=== PATIENT | male | born 2005 | race Caucasian/White ===

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

== ENCOUNTER 2023-01-04 17:43 | Emergency (ER) | payer MEDICAID ==
[~2023-01-04] VITALS: Ht 175.3 cm; Wt 91.0 kg
[2023-01-04 17:55] VITALS: BP 131/75; PULSE 116; RESP 16; TEMP 97.6; O2SAT 97
[2023-01-04] MEDS ORDERED: LORAZEPAM 2MG/ML CPJ IV PRN (18:15)
[2023-01-04] MEDS ORDERED: SODIUM CHLORIDE 0.9% 1,000 ML IV ONE (18:15)
[2023-01-04] MEDS ORDERED: LEVETIRACETAM 1000MG PREMIX 100 ML IV ONE (18:15)
[2023-01-04] MEDS ORDERED: ONDANSETRON HCL 4MG/2ML INJ IV ONE (19:00)
[2023-01-04 20:29] LABS: BASOPHILS % 0.1 % (0.0-2.0); EOSINOPHILS % 0.1 % (0.0-5.0); HEMATOCRIT. 44.7 % (42.0-52.0); HEMOGLOBIN. 15.4 g/dL (14.0-18.0); LYMPHOCYTES % 9.1 % (20.0-50.0); MEAN CORPUSCULAR HEMOGLOBIN 30.3 pg (28.0-32.0); MEAN CORPUSCULAR HGB CONC 34.5 g/dL (31.0-37.0); MEAN CORPUSCULAR VOLUME 87.9 fL (80.0-94.0); MONOCYTES % 8.9 % (2.0-8.0); NEUTROPHILS % 81.8 % (40.0-76.0); RED BLOOD CELL COUNT 5.09 mill/uL (4.7-6.1); RED CELL DISTRIBUTION WIDTH 14.5 % (11.6-14.6); WHITE BLOOD COUNT 15.5 x1000/uL (4.5-11.0)
[2023-01-04 20:33] LABS: CHLORIDE 110 mEq/L (98-107); INDEX HEMOLYSI 1 (1-3); INDEX ICTERIC 1 (1-4); INDEX LIPEMIC 1 (1-3); POTASSIUM 3.7 mEq/L (3.5-5.1); SODIUM 140 mEq/L (136-145)
[2023-01-04 20:41] LABS: ALANINE AMINOTRANSFERASE 98 IU/L (13-61); ALBUMIN 3.7 g/dL (3.4-5.0); ASPARTATE AMINOTRANSFERASE 81 IU/L (15-37); BILIRUBIN TOTAL 0.4 mg/dL (0.1-1.0); CALCIUM 8.1 mg/dL (8.5-10.1); CARBON DIOXIDE 20 mEq/L (21-32); CREATININE 0.8 mg/dL (0.6-1.3); ETHANOL BLOOD < 10 mg/dL (-10); GLUCOSE 117 mg/dL (70-105); PROTEIN TOTAL 7.5 g/dL (6.0-8.3); UREA NITROGEN BLOOD 6 mg/dL (7-21)
[2023-01-04 20:43] LABS: CARBAMAZEPINE < 0.5 ug/mL (4-12); PHENYTOIN < 0.4 ug/mL (10-20)
[2023-01-04 22:41] LABS: DIFFERENTIAL COMMENT 1
[2023-01-04 23:58] LABS: MEAN PLATELET VOLUME 9.8 fl (7.4-10.4); PLATELET 165 x1000/uL (130-400)
== END 2023-01-05 02:33 | disposition left against medical advice (07) ==
LOC: ER 17:43 → EDBEDREQTM 22:37 → EDBEDREQ 22:37 → ER 01-05 02:33 → CANBEDREQ 01-05 02:44
DX: R56.9 Unspecified convulsions (principal); R41.82 Altered mental status, unspecified
CPT/HCPCS: 80053; 80320; 80156; 80185; 82962; 80165; 85025; 36415; 70450; 93005; 96365; 96375; 99285; J1953; J2405; J7030; Z7610 ×3; G0480

== ENCOUNTER 2023-10-27 09:00 | Emergency (ER) | payer MEDICAID ==
[~2023-10-27] VITALS: Ht 177.8 cm; Wt 91.0 kg
[~2023-10-27 09:00] MED LIST: LEVE1000 PO
[2023-10-27 09:01] VITALS: O2SAT 95
[2023-10-27] MEDS: LEVETIRACETAM 1000MG PREMIX 100 ML IV ONE (09:41)
[2023-10-27] MEDS: SODIUM CHLORIDE 0.9% 1,000 ML IV ONE (09:42)
[2023-10-27 10:49] LABS: BASOPHILS % 0.2 % (0.0-2.0); EOSINOPHILS % 0.5 % (0.0-5.0); HEMATOCRIT. 46.8 % (42.0-52.0); HEMOGLOBIN. 15.8 g/dL (14.0-18.0); LYMPHOCYTES % 19.5 % (20.0-50.0); MEAN CORPUSCULAR HEMOGLOBIN 31.2 pg (28.0-32.0); MEAN CORPUSCULAR HGB CONC 33.7 g/dL (31.0-37.0); MEAN CORPUSCULAR VOLUME 92.5 fL (80.0-94.0); MEAN PLATELET VOLUME 9.2 fl (7.4-10.4); MONOCYTES % 8.1 % (2.0-8.0); NEUTROPHILS % 71.7 % (40.0-76.0); PLATELET 248 x1000/uL (130-400); RED BLOOD CELL COUNT 5.05 mill/uL (4.7-6.1); RED CELL DISTRIBUTION WIDTH 13.8 % (11.6-14.6); WHITE BLOOD COUNT 16.8 x1000/uL (4.5-11.0)
[2023-10-27 10:56] LABS: CHLORIDE 108 mEq/L (98-107); POTASSIUM 3.6 mEq/L (3.5-5.1); SODIUM 141 mEq/L (136-145)
[2023-10-27 10:57] LABS: CALCIUM 8.8 mg/dL (8.7-10.4); CARBON DIOXIDE 23 mEq/L (21-32)
[2023-10-27 11:02] LABS: CREATININE 0.9 mg/dL (0.6-1.3); GLUCOSE 190 mg/dL (70-105); UREA NITROGEN BLOOD 8 mg/dL (9-23)
[2023-10-27 11:04] LABS: ETHANOL BLOOD < 10 mg/dL (<10)
[2023-10-27 15:29] VITALS: BP 116/64; PULSE 74; RESP 14; TEMP 97.9
== END 2023-10-27 15:30 | disposition home or self-care (01) ==
LOC: ER 09:03
DX: R56.9 Unspecified convulsions (principal)
CPT/HCPCS: 80048; 80320; 85025; 36415; 96374; 99283; J1953; J7030; G0480

== ENCOUNTER 2023-12-23 18:04 | Emergency (ER) | payer MEDICAID ==
[~2023-12-23] VITALS: Ht 175.3 cm; Wt 77.0 kg
[2023-12-23 18:09] VITALS: O2SAT 98
[2023-12-23 18:27] VITALS: BP 132/66; PULSE 81; RESP 16; TEMP 97.5
== END 2023-12-23 22:26 | disposition home or self-care (01) ==
LOC: ER 18:04
DX: R56.9 Unspecified convulsions (principal); Z98.890 Other specified postprocedural states
CPT/HCPCS: 82962; 99283

== ENCOUNTER 2024-02-01 12:48 | Emergency (ER) | payer MEDICAID ==
[~2024-02-01] VITALS: Ht 172.7 cm; Wt 82.0 kg
[2024-02-01 12:50] VITALS: O2SAT 98
[2024-02-01 13:43] LABS: BASOPHILS % 0.4 % (0.0-2.0); EOSINOPHILS % 1.5 % (0.0-5.0); HEMATOCRIT. 48.8 % (42.0-52.0); HEMOGLOBIN. 16.1 g/dL (14.0-18.0); LYMPHOCYTES % 44.1 % (20.0-50.0); MEAN CORPUSCULAR HEMOGLOBIN 31.1 pg (28.0-32.0); MEAN CORPUSCULAR VOLUME 94.2 fL (80.0-94.0); MEAN PLATELET VOLUME 9.2 fl (7.4-10.4); MONOCYTES % 11.4 % (2.0-8.0); NEUTROPHILS % 42.6 % (40.0-76.0); PLATELET 189 x1000/uL (130-400); RED BLOOD CELL COUNT 5.18 mill/uL (4.7-6.1); RED CELL DISTRIBUTION WIDTH 13.4 % (11.6-14.6); WHITE BLOOD COUNT 10.5 x1000/uL (4.5-11.0)
[2024-02-01] MEDS: SODIUM CHLORIDE 0.9% 1,000 ML IV ONE (13:50)
[2024-02-01] MEDS: ONDANSETRON HCL 4MG/2ML INJ IV STA (13:50)
[2024-02-01] MEDS: MAGNESIUM/ALUMINUM HYDROXIDE/SIMETHICONE 30ML UDC PO STA (13:50)
[2024-02-01 13:52] LABS: CARBON DIOXIDE 23 mEq/L (21-32); CHLORIDE 107 mEq/L (98-107); POTASSIUM 3.9 mEq/L (3.5-5.1); SODIUM 138 mEq/L (136-145)
[2024-02-01 13:53] LABS: CALCIUM 9.3 mg/dL (8.7-10.4)
[2024-02-01 13:57] LABS: CREATININE 0.8 mg/dL (0.6-1.3)
[2024-02-01 13:58] LABS: GLUCOSE 123 mg/dL (70-105); UREA NITROGEN BLOOD 6 mg/dL (9-23)
[2024-02-01 13:59] LABS: ALANINE AMINOTRANSFERASE 129 IU/L (10-49); ASPARTATE AMINOTRANSFERASE 112 IU/L (<34)
[2024-02-01 14:00] LABS: ALBUMIN 4.7 g/dL (3.2-4.8); BILIRUBIN TOTAL 0.7 mg/dL (0.1-1.0); PROTEIN TOTAL 7.4 g/dL (6.0-8.3)
[2024-02-01 14:02] LABS: ETHANOL BLOOD < 10 mg/dL (<10); TROPONIN I HIGH SENSITIVITY < 4 ng/L (3.0-53)
[2024-02-01 15:45] LABS: TROPONIN I HIGH SENSITIVITY < 4 ng/L (3.0-53)
[2024-02-01] MEDS ORDERED: ONDA-239 PO (16:46)
[2024-02-01 18:00] VITALS: BP 130/68; PULSE 68; RESP 14; TEMP 36.05844; O2SAT 98
== END 2024-02-01 18:47 | disposition home or self-care (01) ==
LOC: ER 12:48
DX: R56.9 Unspecified convulsions (principal); R11.10 Vomiting, unspecified; Z98.890 Other specified postprocedural states
CPT/HCPCS: 80053; 80320; 82962; 83690; 85025; 84484; 36415; 71045; 96361; 96374; 99284; J2405; J7030; G0480

== ENCOUNTER 2024-03-10 13:15 | Emergency (ER) | payer MEDICAID ==
[~2024-03-10] VITALS: Ht 172.7 cm; Wt 85.0 kg
[~2024-03-10 13:15] MED LIST changes: +ONDA-239 PO
[2024-03-10 13:16] VITALS: O2SAT 97
[2024-03-10] MEDS: SODIUM CHLORIDE 0.9% 1,000 ML IV ONE (14:05)
[2024-03-10] MEDS: LEVETIRACETAM 1000MG PREMIX 100 ML IV ONE (14:05)
[2024-03-10 14:12] VITALS: TEMP 36.61404
[2024-03-10 14:16] LABS: BASOPHILS % 0.4 % (0.0-2.0); EOSINOPHILS % 1.3 % (0.0-5.0); HEMATOCRIT. 49.4 % (42.0-52.0); HEMOGLOBIN. 16.1 g/dL (14.0-18.0); LYMPHOCYTES % 31.8 % (20.0-50.0); MEAN CORPUSCULAR HEMOGLOBIN 30.2 pg (28.0-32.0); MEAN CORPUSCULAR HGB CONC 32.5 g/dL (31.0-37.0); MEAN CORPUSCULAR VOLUME 92.9 fL (80.0-94.0); MEAN PLATELET VOLUME 9.5 fl (7.4-10.4); MONOCYTES % 13.9 % (2.0-8.0); NEUTROPHILS % 52.6 % (40.0-76.0); PLATELET 188 x1000/uL (130-400); RED BLOOD CELL COUNT 5.32 mill/uL (4.7-6.1); RED CELL DISTRIBUTION WIDTH 13.7 % (11.6-14.6); WHITE BLOOD COUNT 7.5 x1000/uL (4.5-11.0)
[2024-03-10 14:21] LABS: CHLORIDE 110 mEq/L (98-107); POTASSIUM 4.3 mEq/L (3.5-5.1); SODIUM 143 mEq/L (136-145)
[2024-03-10 14:22] LABS: CALCIUM 9.4 mg/dL (8.7-10.4); CARBON DIOXIDE 30 mEq/L (21-32)
[2024-03-10 14:27] LABS: CREATININE 0.9 mg/dL (0.6-1.3); GLUCOSE 86 mg/dL (70-105); UREA NITROGEN BLOOD 12 mg/dL (9-23)
[2024-03-10 15:33] VITALS: BP 97/48; PULSE 81; RESP 12; O2SAT 98
== END 2024-03-10 15:35 | disposition home or self-care (01) ==
LOC: ER 13:15
DX: R56.9 Unspecified convulsions (principal); Z98.890 Other specified postprocedural states
CPT/HCPCS: 80048; 85025; 36415; 96365; 99284; J1953; J7030; Z7610

== ENCOUNTER 2024-04-17 21:30 | Emergency (ER) | payer MEDICAID ==
[~2024-04-17] VITALS: Ht 175.3 cm; Wt 82.0 kg
[2024-04-17 21:33] VITALS: O2SAT 97
[2024-04-17 22:27] LABS: BASOPHILS % 0.3 % (0.0-2.0); EOSINOPHILS % 0.9 % (0.0-5.0); HEMATOCRIT. 45.7 % (42.0-52.0); HEMOGLOBIN. 15.8 g/dL (14.0-18.0); LYMPHOCYTES % 20.7 % (20.0-50.0); MEAN CORPUSCULAR HEMOGLOBIN 32.1 pg (28.0-32.0); MEAN CORPUSCULAR HGB CONC 34.5 g/dL (31.0-37.0); MEAN PLATELET VOLUME 9.4 fl (7.4-10.4); NEUTROPHILS % 70.1 % (40.0-76.0); PLATELET 204 x1000/uL (130-400); RED BLOOD CELL COUNT 4.92 mill/uL (4.7-6.1); RED CELL DISTRIBUTION WIDTH 13.5 % (11.6-14.6); WHITE BLOOD COUNT 8.3 x1000/uL (4.5-11.0)
[2024-04-17] MEDS: LEVETIRACETAM 500MG PREMIX 100 ML IV ONE (22:31)
[2024-04-17 22:33] LABS: CHLORIDE 108 mEq/L (98-107); POTASSIUM 3.6 mEq/L (3.5-5.1); SODIUM 144 mEq/L (136-145)
[2024-04-17 22:34] LABS: CALCIUM 9.4 mg/dL (8.7-10.4); CARBON DIOXIDE 28 mEq/L (21-32)
[2024-04-17 22:39] LABS: CREATININE 0.9 mg/dL (0.6-1.3); GLUCOSE 87 mg/dL (70-105); UREA NITROGEN BLOOD 16 mg/dL (9-23)
[2024-04-17 22:45] LABS: ETHANOL BLOOD < 10 mg/dL (<10)
[2024-04-17 23:33] VITALS: BP 113/68; PULSE 88; RESP 14; TEMP 36.55848; O2SAT 97
== END 2024-04-18 00:06 | disposition home or self-care (01) ==
LOC: ER 21:30
DX: G40.909 Epilepsy, unspecified, not intractable, without status epilepticus (principal); R53.83 Other fatigue
CPT/HCPCS: 80048; 80320; 85025; 36415; 96365; 99284; J1953; G0480

== ENCOUNTER 2024-05-10 21:57 | Emergency (ER) | payer MEDICAID ==
[~2024-05-10] VITALS: Ht 185.4 cm; Wt 100.0 kg
[~2024-05-10 21:57] MED LIST changes: +KEPP500 MT
[2024-05-10 21:59] VITALS: O2SAT 97
[2024-05-10 23:47] LABS: HEMATOCRIT. 47.7 % (42.0-52.0); HEMOGLOBIN. 16.4 g/dL (14.0-18.0); MEAN CORPUSCULAR HEMOGLOBIN 32.1 pg (28.0-32.0); MEAN CORPUSCULAR HGB CONC 34.3 g/dL (31.0-37.0); MEAN CORPUSCULAR VOLUME 93.4 fL (80.0-94.0); MEAN PLATELET VOLUME 10.5 fl (7.4-10.4); PLATELET 163 x1000/uL (130-400); RED CELL DISTRIBUTION WIDTH 13.7 % (11.6-14.6); WHITE BLOOD COUNT 6.8 x1000/uL (4.5-11.0)
[2024-05-10 23:58] LABS: CHLORIDE 108 mEq/L (98-107); POTASSIUM 4.2 mEq/L (3.5-5.1); SODIUM 143 mEq/L (136-145)
[2024-05-10 23:59] LABS: CALCIUM 9.8 mg/dL (8.7-10.4); CARBON DIOXIDE 28 mEq/L (21-32)
[2024-05-11 00:04] LABS: GLUCOSE 94 mg/dL (70-105); UREA NITROGEN BLOOD 12 mg/dL (9-23)
[2024-05-11 00:07] LABS: LACTIC ACID 2.4 mmol/L (0.4-2.0)
[2024-05-11 00:09] LABS: DIFFERENTIAL COMMENT 1
[2024-05-11] MEDS: LEVETIRACETAM 1000MG PREMIX 100 ML IV ONE (02:51)
[2024-05-11] MEDS: LORAZEPAM 2MG/ML INJ IV ONE (02:51)
[2024-05-11 08:00] VITALS: BP 108/56; PULSE 64; RESP 18; O2SAT 100
[2024-05-11 08:01] LABS: PLATELET ESTIMATE NORMAL
[2024-05-11] MEDS ORDERED: LEVETIRACETAM 1000MG PREMIX 100 ML IV SCH (09:00)
== END 2024-05-11 10:44 | disposition left against medical advice (07) ==
LOC: ER 21:57 → EDBEDREQ 05-11 01:13 → ER 05-11 10:44
DX: R56.9 Unspecified convulsions (principal); E87.20 Acidosis, unspecified; R41.82 Altered mental status, unspecified; Z79.899 Other long term (current) drug therapy
CPT/HCPCS: 80048; 82962; 83605 ×2; 85025; 36415; 71045; 93005; 99291; 70450; 96365; 96375; J1953; J2060; Z7610

== ENCOUNTER 2024-10-11 11:51 | Emergency (ER) | payer MEDICAID ==
[~2024-10-11] VITALS: Ht 172.7 cm; Wt 91.0 kg
[~2024-10-11 11:51] MED LIST changes: +BACL-141 PO; +ESCI20TA37 MT; +VALP250C3 PO; +VITA250012 PO
[2024-10-11 11:57] VITALS: O2SAT 99
[2024-10-11 12:06] VITALS: BP 110/64; PULSE 64; RESP 18; TEMP 36.4; O2SAT 99
[2024-10-11 12:41] LABS: HEMATOCRIT 46.6 % (42.0-52.0); HEMOGLOBIN 15.9 g/dL (14.0-18.0); MEAN CORPUSCULAR HEMOGLOBIN 31.5 pg (28.0-32.0); MEAN CORPUSCULAR HGB CONC 34.1 g/dL (31.0-37.0); MEAN CORPUSCULAR VOLUME 92.6 fL (80.0-94.0); PLATELET 153 x1000/uL (130-400); RED BLOOD CELL COUNT 5.04 mill/uL (4.7-6.1); RED CELL DISTRIBUTION WIDTH 14.2 % (11.6-14.6); WHITE BLOOD COUNT 9.3 x1000/uL (4.5-11.0)
[2024-10-11 12:48] LABS: CHLORIDE 110 mEq/L (98-107); POTASSIUM 4.9 mEq/L (3.5-5.1); SODIUM 144 mEq/L (136-145)
[2024-10-11 12:49] LABS: CALCIUM 9.6 mg/dL (8.7-10.4); CARBON DIOXIDE 28 mEq/L (21-32)
[2024-10-11 12:54] LABS: CREATININE 0.9 mg/dL (0.6-1.3); GLUCOSE 134 mg/dL (70-105); UREA NITROGEN BLOOD 10 mg/dL (9-23)
[2024-10-11] MEDS: ONDANSETRON 4MG ODT PO ONE (12:58)
[2024-10-11] MEDS: HALOPERIDOL LACTATE 5MG/ML VIAL IM ONE (12:59)
== END 2024-10-11 14:01 | disposition home or self-care (01) ==
LOC: ER 11:51
DX: R51.9 Headache, unspecified (principal); R11.2 Nausea with vomiting, unspecified; F12.90 Cannabis use, unspecified, uncomplicated; Z98.2 Presence of cerebrospinal fluid drainage device; Z79.899 Other long term (current) drug therapy
CPT/HCPCS: 99285; 70450; 80048; 85027; 36415; 96372; Q0162; J1630

== ENCOUNTER 2025-04-28 12:36 | Emergency (ER) | payer MEDICAID ==
[~2025-04-28] VITALS: Ht 170.2 cm; Wt 73.0 kg
[2025-04-28 12:37] VITALS: O2SAT 99
[2025-04-28] MEDS ORDERED: LEVETIRACETAM 500MG PREMIX 100 ML IV ONE (13:00)
[2025-04-28] MEDS: LEVETIRACETAM 1000MG PREMIX 100 ML IV SCH (13:20)
[2025-04-28] MEDS: KETOROLAC 15MG/ML VIAL IV ONE (13:20)
[2025-04-28 13:30] LABS: BASOPHILS % 0.4 % (0.0-2.0); EOSINOPHILS % 0.6 % (0.0-5.0); HEMATOCRIT. 44.6 % (42.0-52.0); HEMOGLOBIN. 15.0 g/dL (14.0-18.0); LYMPHOCYTES % 28.5 % (20.0-50.0); MEAN PLATELET VOLUME 10.0 fl (7.4-10.4); MONOCYTES % 10.7 % (2.0-8.0); NEUTROPHILS % 59.8 % (40.0-76.0); PLATELET 137 x1000/uL (130-400); RED BLOOD CELL COUNT 4.77 mill/uL (4.7-6.1); RED CELL DISTRIBUTION WIDTH 13.2 % (11.6-14.6)
[2025-04-28 14:00] LABS: CREATININE 0.8 mg/dL (0.6-1.3); UREA NITROGEN BLOOD 7 mg/dL (9-23)
[2025-04-28 14:01] LABS: PROTEIN TOTAL 6.9 g/dL (6.0-8.3); VALPROIC ACID 67.0 ug/mL (50-100)
[2025-04-28 14:02] LABS: ASPARTATE AMINOTRANSFERASE 36 IU/L (<34)
[2025-04-28 14:03] LABS: BILIRUBIN TOTAL 0.4 mg/dL (0.1-1.0)
[2025-04-28 16:21] VITALS: BP 114/63; PULSE 62; RESP 20; TEMP 36.6; O2SAT 99
== END 2025-04-28 17:01 | disposition home or self-care (01) ==
LOC: ER 12:36
DX: G40.909 Epilepsy, unspecified, not intractable, without status epilepticus (principal); R53.83 Other fatigue; Z87.820 Personal history of traumatic brain injury; Z79.899 Other long term (current) drug therapy
CPT/HCPCS: 80053; 82962; 80165; 85025; 36415; 93005; 96365; 96375; 99285; 82542; J1953; J1885; Z7610